=== PATIENT | female | born 1950 | race Caucasian/White ===

== ENCOUNTER 2022-09-15 15:20 | Emergency (ER) | payer MEDICARE, MEDICAID ==
[2022-09-15 15:58] LABS: ANION GAP 13.4 mmol/L (5-15)
[2022-09-15] MEDS: Sodium Chloride 0.9% 500 ML IV ONE (16:03)
[2022-09-15] MEDS: Sodium Chloride 0.9% 10 ML Syringe FLUSH PRN (16:03)
[2022-09-15 16:37] LABS: RESPIRATORY SYNCYTIAL VIR NAA NEGATIVE (NEGATIVE)
[2022-09-15 16:39] LABS: CORONAVIRUS COVID-19 NAA NEGATIVE (NEGATIVE)
[2022-09-15] MEDS: Loperamide 2 MG Cap PO ONE (17:05)
== END 2022-09-15 17:10 | disposition home or self-care (01) ==
LOC: KA.ED 15:20
DX: J10.1 Influenza due to other identified influenza virus with other respiratory manifestations (principal); Z91.048 Other nonmedicinal substance allergy status; Z20.822 Contact with and (suspected) exposure to COVID-19
CPT/HCPCS: 0241U; 36415; 71045; 80048; 83605; 84484; 85025; 86140; 87070; 87205; 93005; 93010; 96360; 99284; 99285-25; A9270-GY; J3490; J7030

== ENCOUNTER 2023-10-25 10:54 | Day surgery (SDC) | payer MEDICARE, MEDICAID ==
[2023-10-25] MEDS: Lactated Ringers 1,000 ML IV SCH (11:30)
[2023-10-25] MEDS: Sodium Chloride 0.9% 10 ML Syringe FLUSH PRN (12:00)
[2023-10-25] MEDS ORDERED: Propofol 200 MG/20 ML SDV ONE (12:36)
== END 2023-10-25 14:58 | disposition home or self-care (01) ==
LOC: KA.SDS 10:54
PROVIDERS: ATTEND Family Medicine
DX: Z12.11 Encounter for screening for malignant neoplasm of colon (principal); D12.6 Benign neoplasm of colon, unspecified; K57.30 Diverticulosis of large intestine without perforation or abscess without bleeding; K64.8 Other hemorrhoids; J43.9 Emphysema, unspecified; I10 Essential (primary) hypertension; K21.9 Gastro-esophageal reflux disease without esophagitis; E78.5 Hyperlipidemia, unspecified; F32.A Depression, unspecified; M81.0 Age-related osteoporosis without current pathological fracture; Z87.891 Personal history of nicotine dependence; Z79.899 Other long term (current) drug therapy
CPT/HCPCS: 00811; J2704; J3490; J7120